=== PATIENT | female | born 1935 | race Caucasian/White ===

== ENCOUNTER → 2017-04-13 | Outpatient (CLI) | payer MEDICARE, BC ==
--- NOTE | 2017-04-13 16:28 | PCVCIMAG ---
APPROVED REPORT Study performed: 04/13/2017 14:50:27 EXAM: Comprehensive 2D, Doppler, and color-flow Echocardiogram Volumes Left Atrial Volume (Systole) LA ESV Index: 32.00 mL/m2 Left Ventricle The left ventricle is normal size. There is normal LV segmental wall motion. Mild concentric left ventricular hypertrophy. Left ventricular systolic function is normal. The left ventricular ejection fraction is within the normal range. LVEF is >55%. Right Ventricle The right ventricle is normal size. The right ventricular systolic function is normal. Atria The left atrium size is normal. The right atrium size is normal. Aortic Valve The aortic valve is moderately sclerotic. Mild aortic regurgitation. There is mild valvular aortic stenosis. Calculated aortic valve area is 1.5 cm2 with maximum pressure gradient of 33 mmHg and mean pressure gradient of 18 mmHg. Mitral Valve The mitral valve is normal in structure. Mild mitral regurgitation. No evidence of mitral valve stenosis. Tricuspid Valve The tricuspid valve is normal in structure. Mild tricuspid regurgitation with PAP of 35 mmHg. Pulmonic Valve The pulmonary valve is normal in structure. There is no pulmonic valvular regurgitation. Great Vessels The aortic root is normal in size. IVC is normal in size and collapses with >50% inspiration Pericardium There is no pericardial effusion. Significant pleural effusion present. <Conclusion> The left ventricle is normal size. Mild concentric left ventricular hypertrophy. Left ventricular systolic function is normal. The right ventricle is normal size. The right ventricular systolic function is normal. The left atrium size is normal. There is mild valvular aortic stenosis. Calculated aortic valve area is 1.5 cm2 with maximum pressure gradient of 33 mmHg and mean pressure gradient of 18 mmHg. Mild mitral regurgitation. Mild tricuspid regurgitation with PAP of 35 mmHg. There is no pericardial effusion.
== END | disposition home or self-care (01) ==
LOC: PCVCIMAG 15:48
PROVIDERS: ATTEND Internal Medicine Cardiovascular Disease
DX: I08.3 Combined rheumatic disorders of mitral, aortic and tricuspid valves (principal); I25.10 Atherosclerotic heart disease of native coronary artery without angina pectoris; I50.33 Acute on chronic diastolic (congestive) heart failure; E78.00 Pure hypercholesterolemia, unspecified; E87.70 Fluid overload, unspecified; E11.22 Type 2 diabetes mellitus with diabetic chronic kidney disease; I12.9 Hypertensive chronic kidney disease with stage 1 through stage 4 chronic kidney disease, or unspecified chronic kidney disease; N18.9 Chronic kidney disease, unspecified; K21.9 Gastro-esophageal reflux disease without esophagitis; Z88.6 Allergy status to analgesic agent; Z79.82 Long term (current) use of aspirin; Z79.84 Long term (current) use of oral hypoglycemic drugs; Z95.1 Presence of aortocoronary bypass graft
CPT/HCPCS: 36415; 93005; 93306; G0463

== ENCOUNTER → 2017-05-15 | Outpatient (CLI) | payer MEDICARE, BC | END | disposition home or self-care (01) | LOC: PCVCCLINIC 11:09 | PROVIDERS: ATTEND Internal Medicine Cardiovascular Disease | DX: I25.10 Atherosclerotic heart disease of native coronary artery without angina pectoris (principal); I11.0 Hypertensive heart disease with heart failure; I50.33 Acute on chronic diastolic (congestive) heart failure; E78.00 Pure hypercholesterolemia, unspecified; E11.9 Type 2 diabetes mellitus without complications; K21.9 Gastro-esophageal reflux disease without esophagitis; Z87.01 Personal history of pneumonia (recurrent); Z95.1 Presence of aortocoronary bypass graft; Z96.652 Presence of left artificial knee joint; Z88.6 Allergy status to analgesic agent; Z79.82 Long term (current) use of aspirin; Z79.4 Long term (current) use of insulin; Z79.84 Long term (current) use of oral hypoglycemic drugs; Z87.891 Personal history of nicotine dependence | CPT/HCPCS: 36415; 93005; G0463 ==

== ENCOUNTER → 2017-07-31 | Outpatient (CLI) | payer MEDICARE, BC ==
--- NOTE | 2017-07-31 15:26 | PCVCIMAG ---
EXAM: BILATERAL CAROTID DUPLEX INDICATION: Carotid Occlusive Disease. FINDINGS: Doppler Measurements (centimeters per second): RIGHT: Peak CCA-49, Peak ECA-450, Diastolic ICA-18, Peak ICA-102, ICA/CCA Ratio-2.1. LEFT: Peak CCA-82, Peak ECA-211, Diastolic ICA-15, Peak ICA-173, ICA/CCA Ratio-2.1. RIGHT CAROTID: The carotid bulb has moderate plaque. The proximal internal carotid artery shows <40% stenosis. The common carotid artery shows no significant stenosis. The external carotid artery shows 90% stenosis. LEFT CAROTID: The carotid bulb has moderate plaque. The proximal internal carotid artery shows 60% stenosis. The common carotid artery shows no significant stenosis. The external carotid artery shows 60% stenosis. Antegrade flow in both vertebral arteries. IMPRESSION: <40% stenosis of the right internal carotid artery with moderate plaque. 60% stenosis of the left internal carotid artery with moderate plaque. LOC:[place] [id number]
== END | disposition home or self-care (01) ==
LOC: PCVCIMAG 14:17
PROVIDERS: ATTEND Nuclear Medicine Nuclear Cardiology
DX: I65.23 Occlusion and stenosis of bilateral carotid arteries (principal); I25.10 Atherosclerotic heart disease of native coronary artery without angina pectoris; I35.0 Nonrheumatic aortic (valve) stenosis; E11.9 Type 2 diabetes mellitus without complications; E78.5 Hyperlipidemia, unspecified; I50.9 Heart failure, unspecified; I13.0 Hypertensive heart and chronic kidney disease with heart failure and stage 1 through stage 4 chronic kidney disease, or unspecified chronic kidney disease; N18.3 Chronic kidney disease, stage 3 (moderate); K21.9 Gastro-esophageal reflux disease without esophagitis; Z79.4 Long term (current) use of insulin; Z79.82 Long term (current) use of aspirin; Z95.1 Presence of aortocoronary bypass graft; Z96.652 Presence of left artificial knee joint; Z87.891 Personal history of nicotine dependence; Z79.84 Long term (current) use of oral hypoglycemic drugs; Z88.8 Allergy status to other drugs, medicaments and biological substances
CPT/HCPCS: 93880; G0463

== ENCOUNTER → 2018-05-28 | Outpatient (CLI) | payer MEDICARE, BC ==
--- NOTE | 2018-05-28 14:32 | PCVCIMAG ---
APPROVED REPORT Study performed: 05/28/2018 10:22:02 EXAM: Comprehensive 2D, Doppler, and color-flow Echocardiogram Patient Location: Echo lab Room #: 2Status: routine BSA: 1.82 HR: 48 bpmBP: 114/56 mmHg Rhythm: Bradycardia Other Information Study Quality: Adequate Indications Congestive Heart Failure Murmur CAD Hypertension/HDD S/P CABG 2D Dimensions LVEF(%): 86.04 (>50%) IVSd: 13.03 (7-11mm)LVOT Diam: 19.47 (18-24mm) LVDd: 41.37 mm PWd: 11.87 (7-11mm)Ascending Ao: 25.59 (22-36mm) LVDs: 18.61 (25-40mm) Left Atrium: 42.76 (27-40mm) Aortic Root: 19.00 mm LV Single Plane 4CH: 68.19 % LV Single Plane 2CH: 74.20 %Fung's LVEF: 71.19 % Biplane EF: 71.9 % Volumes Left Atrial Volume (Systole) Single Plane 4CH: 31.08 mLSingle Plane 2CH: 40.00 mL Biplane LA Volume: 37.00 mLLA ESV Index: 20.00 mL/m2 Aortic Valve AoV Peak Jg.: 2.86 m/s AO Peak Gr.: 31.95 mmHgLVOT Max P.30 mmHg AO Mean Gr.: 20.94 mmHgLVOT Mean P.62 mmHg AO V2 Mean: 2.23 m/sLVOT Max V: 1.24 m/s AO V2 VTI: 74.01 cmLVOT Mean V: 0.88 m/s CHASTITY (VTI): 1.28 [id number] V1 VTI: 31.81 cm CHASTITY Vmax: 1.29 cm2 SV (LVOT): 94.66 mL Mitral Valve MV Peak Gr.: 6.19 mmHg MV Mean Gr.: 1.62 mmHgE/A Ratio: 0.7 MV Decel. Time: 687.29 ms MV E Max Jg.: 0.84 m/s MV A Jg.: 1.14 m/s MV Max Jg.: 1.24 m/s MV Mean Jg.: 0.57 m/s MV VTI: 429.23 mm MVA VTI: 220.53 mm2 IVRT: 83.04 ms TDI E/Lateral E': 12.00E/Medial E': 21.00 Medial E' Jg.: 0.04 m/s Lateral E' Jg.: 0.07 m/s Pulmonary Valve PV Peak Jg.: 1.03 m/sPV Peak Gr.: 4.20 mmHg Pulmonary Vein P Vein S: 0.52 m/sP Vein A: 0.35 m/s P Vein D: 0.44 m/sP Vein A Dur.: 76.1 msec P Vein S/D Ratio: 1.18 Tricuspid Valve TR Peak Jg.: 2.54 m/s TR Peak Gr.: 25.73 mmHg TV Vmax: 0.71 m/sPA Pressure: 33.00 mmHg Left Ventricle The left ventricle is normal size. There is normal LV segmental wall motion. Mild concentric left ventricular hypertrophy. Left ventricular systolic function is normal. The left ventricular ejection fraction is within the normal range. LVEF is >70%. Grade I - abnormal relaxation pattern. Right Ventricle The right ventricle is normal size. The right ventricular systolic function is normal. Atria The left atrium size is normal. The right atrium size is normal. Aortic Valve Aortic valve is probably trileaflet. Moderate aortic valve sclerosis. No aortic regurgitation is present. Moderate aortic stenosis. Highest mean aortic valve gradient is 20.9 mmHg. Peak aortic valve gradient is 32.6 mmHg. Calculated CHASTITY by the continuity equation is 1.3_cm2. Mitral Valve The mitral valve is normal in structure. There is no mitral valve regurgitation noted. No evidence of mitral valve stenosis. Tricuspid Valve The tricuspid valve is normal in structure. Trace to mild tricuspid regurgitation with a PA pressure of 33 mmHg. Mild pulmonary hypertension. Pulmonic Valve The pulmonary valve is normal in structure. There is no pulmonic valvular regurgitation. Great Vessels The aortic root is normal in size. The ascending aorta is normal in size. IVC is normal in size and collapses with >50% inspiration Pericardium There is no pericardial effusion. There is no pleural effusion. <Conclusion> The left ventricle is normal size. Mild concentric left ventricular hypertrophy. Left ventricular systolic function is normal. Grade I - abnormal relaxation pattern. The right ventricle is normal size. The left atrium size is normal. Moderate aortic stenosis. Highest mean aortic valve gradient is 20.9 mmHg. There is no mitral valve regurgitation noted. Trace to mild tricuspid regurgitation with a PA pressure of 33 mmHg. Mild pulmonary hypertension.
== END | disposition home or self-care (01) ==
LOC: PCVCIMAG 14:55
PROVIDERS: ATTEND Internal Medicine Cardiovascular Disease
DX: I25.10 Atherosclerotic heart disease of native coronary artery without angina pectoris (principal); I10 Essential (primary) hypertension; I77.9 Disorder of arteries and arterioles, unspecified; I50.9 Heart failure, unspecified; R60.0 Localized edema; I67.89 Other cerebrovascular disease; I35.0 Nonrheumatic aortic (valve) stenosis; Z95.1 Presence of aortocoronary bypass graft; Z79.82 Long term (current) use of aspirin; Z79.4 Long term (current) use of insulin
CPT/HCPCS: 93005; 93306; G0463

== ENCOUNTER → 2018-06-03 | Outpatient (CLI) | payer MEDICARE, BC | END | disposition home or self-care (01) | LOC: PCVCIMAG 13:00 | PROVIDERS: ATTEND Internal Medicine Cardiovascular Disease | DX: I65.23 Occlusion and stenosis of bilateral carotid arteries (principal); I10 Essential (primary) hypertension; E78.5 Hyperlipidemia, unspecified; I25.10 Atherosclerotic heart disease of native coronary artery without angina pectoris; Z86.73 Personal history of transient ischemic attack (TIA), and cerebral infarction without residual deficits | CPT/HCPCS: 93880 ==

== ENCOUNTER → 2019-01-08 | Outpatient (CLI) | payer MEDICARE, BC | END | disposition home or self-care (01) | LOC: PCVCCLINIC 13:09 | PROVIDERS: ATTEND Internal Medicine Cardiovascular Disease | DX: I25.10 Atherosclerotic heart disease of native coronary artery without angina pectoris (principal); I11.0 Hypertensive heart disease with heart failure; I50.9 Heart failure, unspecified; I35.0 Nonrheumatic aortic (valve) stenosis; E78.49 Other hyperlipidemia; E11.9 Type 2 diabetes mellitus without complications; K21.9 Gastro-esophageal reflux disease without esophagitis | CPT/HCPCS: 93005; G0463 ==

== ENCOUNTER → 2019-02-13 | Outpatient (CLI) | payer MEDICARE, BC ==
--- NOTE | 2019-02-17 09:38 | PCVCIMAG ---
APPROVED REPORT Study performed: 02/13/2019 13:31:36 EXAM: Comprehensive 2D, Doppler, and color-flow Echocardiogram Patient Location: Echo lab Room #: 2Status: routine BSA: 1.85 HR: 57 bpmBP: 144/64 mmHg Rhythm: Bradycardia Other Information Study Quality: Good Risk Factors: Cardiac Risk Factors: HTN Indications Aortic Valve Disease COPD CAD Hypertension/HDD S/P CABG 2D Dimensions IVSd: 9.66 (7-11mm)LVOT Diam: 18.67 (18-24mm) LVDd: 44.83 mm PWd: 11.28 (7-11mm) LVDs: 22.06 (25-40mm) Left Atrium: 39.21 (27-40mm) Aortic Root: 20.83 mm LV Single Plane 4CH: 57.74 % LV Single Plane 2CH: 75.72 % Biplane EF: 69.6 % Volumes Left Atrial Volume (Systole) Single Plane 4CH: 82.32 mLSingle Plane 2CH: 45.03 mL Biplane LA Volume: 61.00 mLLA ESV Index: 33.00 mL/m2 Aortic Valve AoV Peak Jg.: 3.26 m/s AO Peak Gr.: 43.70 mmHgLVOT Max P.26 mmHg AO Mean Gr.: 26.84 mmHgLVOT Mean P.15 mmHg AO V2 Mean: 2.51 m/sLVOT Max V: 1.16 m/s AO V2 VTI: 85.85 cmLVOT Mean V: 0.84 m/s CHASTITY (VTI): 0.97 [id number] V1 VTI: 30.37 cm CHASTITY Vmax: 0.98 cm2 SV (LVOT): 83.08 mL Mitral Valve MV Peak Gr.: 8.00 mmHg MV Mean Gr.: 3.37 mmHgE/A Ratio: 1.0 MV Decel. Time: 117.43 ms MV E Max Jg.: 1.28 m/s MV A Jg.: 1.30 m/s MV Max Jg.: 1.41 m/s MV Mean Jg.: 0.86 m/s MV VTI: 551.49 mm MVA VTI: 150.65 mm2 MV PHT: 88.95 ms MVA (PHT): 2.47 cm2 IVRT: 86.51 ms TDI E/Lateral E': 21.33E/Medial E': 25.60 Medial E' Jg.: 0.05 m/s Lateral E' Jg.: 0.06 m/s Pulmonary Valve PV Peak Jg.: 1.09 m/sPV Peak Gr.: 4.75 mmHg Pulmonary Vein P Vein S: 0.53 m/sP Vein A: 0.28 m/s P Vein D: 0.71 m/sP Vein A Dur.: 103.8 msec P Vein S/D Ratio: 0.75 Tricuspid Valve TR Peak Jg.: 2.91 m/s TR Peak Gr.: 33.76 mmHg TV Vmax: 0.85 m/sPA Pressure: 41.00 mmHg Left Ventricle The left ventricle is normal size. There is normal LV segmental wall motion. There is normal left ventricular wall thickness. Left ventricular systolic function is normal. The left ventricular ejection fraction is within the normal range. LVEF is 70%. Moderate diastolic dysfunction is present (pseudonormal filling). Right Ventricle The right ventricle is normal size. The right ventricular systolic function is normal. Atria The left atrium size is normal. The right atrium size is normal. Aortic Valve Aortic valve is trileaflet. Severe aortic valve sclerosis. No aortic regurgitation is present. Moderate to severe aortic stenosis. Highest mean aortic valve gradient is 27 mmHg. Peak aortic valve gradient is 43 mmHg. Mitral Valve Moderate mitral annular calcification. Mitral valve leaflets have mildly restricted excursion. Mild mitral regurgitation. No evidence of mitral valve stenosis. Tricuspid Valve The tricuspid valve is normal in structure. Moderate tricuspid regurgitation with a PA pressure of 41 mmHg. Moderate pulmonary hypertension. Pulmonic Valve The pulmonary valve is normal in structure. Trace pulmonic regurgitation. Great Vessels The aortic root is normal in size. The ascending aorta is normal in size. IVC is normal in size and collapses >50% with inspiration. Pericardium There is no pericardial effusion. There is no pleural effusion. <Conclusion> The left ventricle is normal size. There is normal left ventricular wall thickness. Left ventricular systolic function is normal. Moderate diastolic dysfunction is present (pseudonormal filling). The right ventricle is normal size. The left atrium size is normal. Moderate to severe aortic stenosis. Highest mean aortic valve gradient is 27 mmHg. Moderate mitral annular calcification. Mitral valve leaflets have mildly restricted excursion. Mild mitral regurgitation. Moderate tricuspid regurgitation with a PA pressure of 41 mmHg.
== END | disposition home or self-care (01) ==
LOC: PCVCCLINIC 13:04
PROVIDERS: ATTEND Internal Medicine Cardiovascular Disease
DX: I08.3 Combined rheumatic disorders of mitral, aortic and tricuspid valves (principal); I25.10 Atherosclerotic heart disease of native coronary artery without angina pectoris; J44.9 Chronic obstructive pulmonary disease, unspecified; I10 Essential (primary) hypertension; Z95.1 Presence of aortocoronary bypass graft
CPT/HCPCS: 93306

== ENCOUNTER → 2019-02-19 | Outpatient (CLI) | payer MEDICARE, BC | END | disposition home or self-care (01) | LOC: PCVCCLINIC 14:20 | PROVIDERS: ATTEND Internal Medicine Cardiovascular Disease | DX: I25.10 Atherosclerotic heart disease of native coronary artery without angina pectoris (principal); I13.0 Hypertensive heart and chronic kidney disease with heart failure and stage 1 through stage 4 chronic kidney disease, or unspecified chronic kidney disease; I50.32 Chronic diastolic (congestive) heart failure; N18.3 Chronic kidney disease, stage 3 (moderate); E11.22 Type 2 diabetes mellitus with diabetic chronic kidney disease; I35.0 Nonrheumatic aortic (valve) stenosis; E78.49 Other hyperlipidemia; R60.0 Localized edema | CPT/HCPCS: 93005; G0463 ==

== ENCOUNTER → 2019-02-26 | Outpatient (CLI) | payer MEDICARE, BC | END | disposition home or self-care (01) | LOC: PCVCCLINIC 15:00 | PROVIDERS: ATTEND Internal Medicine Cardiovascular Disease | DX: I10 Essential (primary) hypertension (principal); E11.22 Type 2 diabetes mellitus with diabetic chronic kidney disease; I13.0 Hypertensive heart and chronic kidney disease with heart failure and stage 1 through stage 4 chronic kidney disease, or unspecified chronic kidney disease; N18.3 Chronic kidney disease, stage 3 (moderate); I50.32 Chronic diastolic (congestive) heart failure; I35.0 Nonrheumatic aortic (valve) stenosis; E78.49 Other hyperlipidemia; K21.9 Gastro-esophageal reflux disease without esophagitis; Z79.4 Long term (current) use of insulin; Z87.891 Personal history of nicotine dependence; Z79.82 Long term (current) use of aspirin | CPT/HCPCS: 36415 ==

== ENCOUNTER → 2019-03-05 | Outpatient (CLI) | payer MEDICARE, BC | END | disposition home or self-care (01) | LOC: PCVCCLINIC 14:15 | PROVIDERS: ATTEND Internal Medicine Cardiovascular Disease | DX: I77.9 Disorder of arteries and arterioles, unspecified (principal); R60.9 Edema, unspecified; I25.10 Atherosclerotic heart disease of native coronary artery without angina pectoris; I11.0 Hypertensive heart disease with heart failure; I50.9 Heart failure, unspecified; K21.9 Gastro-esophageal reflux disease without esophagitis; E78.5 Hyperlipidemia, unspecified | CPT/HCPCS: 93005; G0463 ==